=== PATIENT | female | born 1935 | race Caucasian/White ===

== ENCOUNTER 2022-12-31 08:32 | Observation (INO) ==
--- NOTE | 2022-12-31 08:52 | ED.PDOC ---
General ED Provider: Dr. MARTÍNEZ VEGA MD Chief Complaint: Non-specific Complaint Stated Complaint: PATIENT CALLED POLICE TO HOME ATTEMPTING TO FIND RELATIVES. POLICE INFORMED EMS THAT PATIENT HAS VERY LITTE FOOD IN HER HOME. UPON ARRIVAL OF EMS, WHO NOTICED FECAL MATERIAL ON THE FLOOR IN ALL THE ROOMS, MARKED FECES IN HER GARAGE, NO FUNCTIONING TOILET. PATIENT DENIES COMPLAINS HEADACHE, CHEST PAIN, DYSPNEA, NAUSEA EMESIS AND DIARRHEA, FALL, INJURY OR TRAUMA. Time Seen by Provider: 12/31/22 08:40 Mode of Arrival: Ambulance Information Source: Patient Exam Limitations: Clinical condition and Dementia Nursing and Triage Documentation Reviewed and Agree: Yes Does patient meet sepsis criteria?: No System Inflammatory Response Syndrome: Not Applicable Sepsis Protocol: For patient's 13 years and over: Temp is 96.8 and below OR 101 and greater Pulse >90 BPM Resp >20/minute Acutely Altered Mental Status Are patient's symptoms suggestive of a new infection, such as: -Pneumonia -Skin, Soft Tissue -Endocarditis -UTI -Bone, Joint Infection -Implantable Device -Acute Abdominal Infection -Wound Infection -Meningitis -Blood Stream Catheter Infection -Unknown Review of Systems Review Of Systems Constitutional: Reports No symptoms; Denies Chills, Diaphoresis, Fever or Malaise Eyes: Reports No symptoms; Denies Blindness, Blurred vision or Vision change Ears, Nose, Mouth, Throat: Reports No symptoms; Denies Ear pain, Ear discharge, Nose pain or Nose discharge Respiratory: Reports No symptoms; Denies Cough or Short of air Cardiac: Reports No symptoms GI: Reports No symptoms; Denies Abdomen distended or Abdominal pain : Reports No symptoms; Denies Burning Musculoskeletal: Reports No symptoms; Denies Back pain, Gout or Joint pain Skin: Reports No symptoms Neurological: Reports No symptoms Endocrine: Reports No symptoms Hematologic/Lymphatic: Reports No symptoms All Other Systems: Reviewed and Negative Physical Exam Physical Exam Appearance: Reports Cachectic and Other (MALNOURISH) Ill-appearing: Mild Pain Distress: Not Applicable Eyes: Reports JANETH, EOMI and Conjunctiva clear ENT: Reports Ears normal Neck: Supple Respiratory: Reports Airway patent, Breath sounds clear and Breath sounds equal Cardiovascular: Reports RRR and Pulses normal GI/: Reports Soft Musculoskeletal: Reports Normal strength, ROM intact, No edema, No calf tenderness and Other (DRIED FECAL MATERIAL ON LOWER EXTREMITES SHINS, FEET AND TOES) Skin: Reports Warm, Dry and Normal color Neurological: Reports Sensation intact, Motor intact and Reflexes intact Psychiatric: Reports Affect appropriate and Mood appropriate Interpretation Radiology Interpretation Xray Comments: patient refused chest xray AND IV FLUIDS Technology Recruiter Time of Technology Recruiter Interpretation: 14:27 Rate: Normal Rhythm: Sinus Ectopy: None EKG Interpretation Time of EKG #1: 09:26 Rate: Normal Rhythm: Sinus Ectopy: None [place]: Left ST Segment: Other (nonspecific st wave changes inferior laterally) Interpretation: normal sinus rhythm rate 87, nonspecific st wave changes inferior lat, Re-Evaluation Re-Evaluation Time of Re-Evaluation: 13:30 Status: Unchanged Vital Signs Stable: Yes Appearance: NAD Lungs: Clear Skin: Warm and Dry Neuro: Other (alert to person, time, confused to date) Physician Notification Case Discussed Physician Notified: DISCUSSED WITH DR HAMILTON Time of Notification: 16:40 Comments: FOR ADMISSION TO OBSERVATION Critical Care Note Critical Care Note Total Critical Care Time (mins): 0 Course Course 12/31/22 09:29 12/31/22 09:29 Orders, Labs, Meds: Lab Review 12/31/22 12/31/22 12/31/22 09:25 09:29 12:52 WBC 4.68 RBC 3.56 L Hgb 11.1 L Hct 32.5 L MCV 91.3 MCH 31.2 H MCHC 34.2 RDW Coeff of [place] 12.7 Plt Count 169 Immature Gran % (Auto) 0.2 Neut % (Auto) 62.4 Lymph % (Auto) 26.1 Kings % (Auto) 10.5 H Eos % (Auto) 0.4 Baso % (Auto) 0.4 Neut # (Auto) 2.9 Lymph # (Auto) 1.2 [place] # (Auto) 0.5 Eos # (Auto) 0.0 Baso # (Auto) 0.0 Immature Gran # (Auto) 0.0 Sodium 138.8 Potassium 3.19 L Chloride 102.4 Carbon Dioxide 30.5 H Anion Gap 9.09 BUN 27.3 H Creatinine 1.37 H Estimated GFR (MDRD) 36.00 BUN/Creatinine Ratio 19.92 Glucose 165.5 H Calcium 9.30 Total Bilirubin 0.67 AST 34.5 ALT 16.7 Alkaline Phosphatase 70.6 Total Protein 7.93 Albumin 4.43 Globulin 3.50 Albumin/Globulin Ratio 1.26 Urine Color Yellow Urine Clarity Clear Urine pH 5.0 Ur Specific [place] >=1.030 Urine Protein 1+ H Urine Glucose (UA) Negative Urine Ketones Trace H Urine Blood Negative Urine Nitrite Negative Urine Bilirubin Negative Urine Urobilinogen 0.2 Ur Leukocyte Esterase Trace H Urine Microscopic RBC 2-5 Urine Microscopic WBC 10-20 Ur Squamous Epith Cells 2-5 Ur Transition Epith Cell 0-2 Amorphous Sediment Trace Urine Bacteria 2+ Hyaline Casts 5-10 Urine Mucus 1+ SARS CoV-2 RNA Rapid ELSIE Negative Orders Category Date Time Status EKG-(ED ONLY) Stat CARDIO 12/31/22 09:03 Completed CBC W/ AUTO DIFF Stat LAB 12/31/22 09:29 Completed COMPREHENSIVE METABOLIC PANEL Stat LAB 12/31/22 09:29 Completed SARS COV-2 RNA RAPID ELSIE Stat LAB 12/31/22 09:25 Completed URINALYSIS C & S IF INDICATED Stat LAB 12/31/22 12:52 Completed URINE CULTURE Stat LAB 12/31/22 12:52 Received Potassium Chloride [K-Dur] MEDS 12/31/22 13:50 Discontinued 40 meq PO ONCE ONE Potassium Chloride [Potassium Chl 10% Oral Rossi] MEDS 12/31/22 13:37 Discontinued 40 meq PO ONCE STA Sodium Chloride 0.9% [Sodium Chloride] 1,000 ml MEDS 12/31/22 09:03 Disconti nued IV 30 mls/hr Medications Discontinued Medications Generic Name Dose Route Start Last Admin Trade Name Freq PRN Reason Stop Dose Admin Sodium Chloride 1,000 mls @ 30 mls/hr 12/31/22 09:03 12/31/22 10:37 Sodium Chloride IV 01/01/23 18:22 Not Given .[id number] STA Potassium Chloride 40 meq 12/31/22 13:37 12/31/22 13:50 Potassium Chloride 40 Meq/30 Ml Cup PO 12/31/22 13:38 Not Given ONCE STA Potassium Chloride 40 meq 12/31/22 13:50 12/31/22 13:53 Potassium Chloride 20 Meq Tab PO 12/31/22 13:51 40 meq ONCE ONE Administration Vital Signs: Temp Pulse Resp BP Pulse Ox 12/31/22 14:31 75 16 114/59 L 98 12/31/22 08:34 98.9 F 93 20 144/80 H 100 Discharge Plan Discharge Discharge Problem: Unable to care for self, Adult failure to thrive, Acute hypokalemia Did you review [place] CARDIOVASCULAR PHYSICIAN ASSISTANT for ALL controlled substances?: Not Applicable Discussed opioids are addictive and Narcan is available by prescription or from pharmacy.: No ED Provider: MARTÍNEZ VEGA Physician Progress Note: MDM []PATIENT CALLED POLICE TO FIND FAMILY MEMBER, FOUND HOME IN [place], EMS FOUND FECES THROUGHOUT THE HOME, NO FUNCTIONING TOILET, PATIENT WITH FECES OVER LOWER EXTREMITIES. ALL LABS REVIEWE BY ME WELL EKG, PATIENT REFUSES CHEST X RAY, AND IV FLUIDS. HISTORY OBTAINED FROM PATIENT AND PARAMEDICS PATIENT ALERT ORIENTED TO PLACE, NAME BUT NOT DATES ALL LABS REVIEWED BY ME, ADMINISTERED POTASSIUM 40MEQ LIQUID, BUT REFUSED, ACCEPTED POTASSIUM TABLET 40MEP ORALLY THERE HAS BEEN NO CHANGE THROUGHOUT EMERGENCY ROOM VISIT PATIENT LIVING CONDITION IN SUCH DISARRAY IN THAT IT IS UNSAFE FOR PATIENT TO RETURN HOME DISCUSSED WITH PATIENT'S FAMILY TANA THORPE AT 1345 CONCERNING PATIENT'S LIVING CONDITION WITH RECOMMENDATION OF HOSPITALIZATION FOR POSSIBLE PLACEMENT. ADULT PROTECTIVE SERVICES WERE CONSULT FOR PATIENT LIVING CONDITION. 1500-DISCUSSED WITH DR HAMILTON CONCERNING USP PLACEMENT [address] HAMILTON FOR ADMIT TO OBSERVATION DUE TO BEING UNABLE TO PLACE IN [facility] DIAGNOSIS: 1)FAILURE TO THRIVE 2)MALNUTRITION 3)HYPOKALEMIA
[2022-12-31] MEDS ORDERED: SODIUM CHLORIDE 1,000 ML IV STA (09:03)
[2022-12-31 09:34] LABS: BASOPHILS % (AUTO) 0.4 % (0.0-3.0); EOSINOPHILS % (AUTO) 0.4 % (0.0-7.0); HEMATOCRIT 32.5 % (37.0-47.0); HEMOGLOBIN 11.1 g/dl (12.0-16.0); IMMATURE GRANULOCYTE % (AUTO) 0.2 % (0.0-5.0); LYMPHOCYTES # (AUTO) 1.2 K/uL (0.60-3.4); LYMPHOCYTES % (AUTO) 26.1 (10.0-50.0); MEAN CORPUSCULAR HEMOGLOBIN 31.2 pg (27.0-31.0); MEAN CORPUSCULAR HGB CONC 34.2 (31.8-35.4); MEAN CORPUSCULAR VOLUME 91.3 fl (81.0-99.0); MONOCYTES # (AUTO) 0.5 K/uL (0.4-2.0); MONOCYTES % (AUTO) 10.5 (0-10); NEUTROPHILS # (AUTO) 2.9 K/ul (2.0-6.9); NEUTROPHILS % (AUTO) 62.4 % (42.2-75.2); PLATELET COUNT 169 10^3/uL (140-440); RDW COEFFICIENT OF VARIATION 12.7 % (11.6-14.8); RED BLOOD COUNT 3.56 10^6/ul (4.20-5.40); WHITE BLOOD COUNT 4.68 K/ul (4.6-10.2)
[2022-12-31 09:45] LABS: ALANINE AMINOTRANSFERASE 16.7 U/L (0-35); ALBUMIN 4.43 g/dL (3.5-5.0); ALKALINE PHOSPHATASE 70.6 U/L (53-141); ASPARTATE AMINO TRANSFERASE 34.5 U/L (14-36); BILIRUBIN,TOTAL 0.67 mg/dL (0.2-1.3); BLOOD UREA NITROGEN 27.3 mg/dL (7-17); CALCIUM 9.3 mg/dL (8.4-10.2); CARBON DIOXIDE 30.5 mmol/L (22-30.0); CHLORIDE 102.4 mmol/L (98-107); CREATININE 1.37 mg/dL (0.60-1.30); GLUCOSE 165.5 mg/dL (74-106); POTASSIUM 3.19 mmol/L (3.5-5.1); SODIUM 138.8 mmol/L (134.5-145); TOTAL PROTEIN 7.93 g/dL (6.3-8.2)
[2022-12-31 10:19] LABS: SARS COV-2 RNA RAPID NAAT NEGATIVE (NEGATIVE)
[2022-12-31 12:58] LABS: BILIRUBIN,URINE Negative (NEGATIVE); CLARITY,URINE Clear (CLEAR); COLOR,URINE Yellow (YELLOW); GLUCOSE, URINE (UA) Negative (NEGATIVE); KETONES,URINE Trace (NEGATIVE); LEUKOCYTE ESTERASE ,URINE Trace (NEGATIVE); NITRITE,URINE Negative (NEGATIVE); PROTEIN,URINE 1+ (NEGATIVE); URINE, BLOOD Negative (NEGATIVE); UROBILINOGEN,URINE 0.2 (0.2)
[2022-12-31 13:04] LABS: AMORPHOUS SEDIMENT,UR TRACE (NOT PRESENT); BACTERIA,URINE 2+ (NOT PRESENT); MUCUS,URINE 1+ (NOT PRESENT); TRANSITIONAL EPI CELLS,URINE 0-2 (NOT PRESENT)
[2022-12-31] MEDS: POTASSIUM CHL 10% ORAL SOL PO STA ×2 (13:46→13:50)
[2022-12-31] MEDS ORDERED: K-DUR PO ONE (13:50)
[2022-12-31 17:18] VITALS: BMI 16.6
[2023-01-01 05:22] LABS: BASOPHILS % (AUTO) 0.2 % (0.0-3.0); EOSINOPHILS # (AUTO) 0.1 K/ul (0.0-0.7); EOSINOPHILS % (AUTO) 1.9 % (0.0-7.0); HEMATOCRIT 29.4 % (37.0-47.0); HEMOGLOBIN 10.2 g/dl (12.0-16.0); IMMATURE GRANULOCYTE % (AUTO) 0.2 % (0.0-5.0); LYMPHOCYTES % (AUTO) 41.4 (10.0-50.0); MEAN CORPUSCULAR HEMOGLOBIN 31.7 pg (27.0-31.0); MEAN CORPUSCULAR HGB CONC 34.7 (31.8-35.4); MEAN CORPUSCULAR VOLUME 91.3 fl (81.0-99.0); MONOCYTES # (AUTO) 0.4 K/uL (0.4-2.0); MONOCYTES % (AUTO) 8.9 (0-10); NEUTROPHILS # (AUTO) 2.2 K/ul (2.0-6.9); NEUTROPHILS % (AUTO) 47.4 % (42.2-75.2); PLATELET COUNT 146 10^3/uL (140-440); RDW COEFFICIENT OF VARIATION 12.4 % (11.6-14.8); RED BLOOD COUNT 3.22 10^6/ul (4.20-5.40); WHITE BLOOD COUNT 4.71 K/ul (4.6-10.2)
[2023-01-01 05:36] LABS: ALANINE AMINOTRANSFERASE 12.4 U/L (0-35); ALBUMIN 3.3 g/dL (3.5-5.0); ASPARTATE AMINO TRANSFERASE 27.3 U/L (14-36); BILIRUBIN,TOTAL 0.49 mg/dL (0.2-1.3); BLOOD UREA NITROGEN 23.5 mg/dL (7-17); CALCIUM 8.52 mg/dL (8.4-10.2); CARBON DIOXIDE 30.1 mmol/L (22-30.0); CHLORIDE 106.9 mmol/L (98-107); CREATININE 1.05 mg/dL (0.60-1.30); GLUCOSE 107.1 mg/dL (74-106); POTASSIUM 4.11 mmol/L (3.5-5.1); SODIUM 137.9 mmol/L (134.5-145); TOTAL PROTEIN 6.21 g/dL (6.3-8.2)
[2023-01-01 18:07] LABS: OCCULT BLOOD SAMPLE 1 NEGATIVE (NEGATIVE)
[2023-01-02 00:06] LABS: OCCULT BLOOD SAMPLE 2 NO SPECIMEN RECEIVED (NEGATIVE); OCCULT BLOOD SAMPLE 3 NO SPECIMEN RECEIVED (NEGATIVE)
[2023-01-02 05:25] LABS: BASOPHILS % (AUTO) 0.2 % (0.0-3.0); EOSINOPHILS # (AUTO) 0.1 K/ul (0.0-0.7); HEMATOCRIT 31.9 % (37.0-47.0); HEMOGLOBIN 10.9 g/dl (12.0-16.0); IMMATURE GRANULOCYTE % (AUTO) 0.4 % (0.0-5.0); LYMPHOCYTES # (AUTO) 1.8 K/uL (0.60-3.4); LYMPHOCYTES % (AUTO) 35.7 (10.0-50.0); MEAN CORPUSCULAR HEMOGLOBIN 31.4 pg (27.0-31.0); MEAN CORPUSCULAR HGB CONC 34.2 (31.8-35.4); MEAN CORPUSCULAR VOLUME 91.9 fl (81.0-99.0); MONOCYTES # (AUTO) 0.4 K/uL (0.4-2.0); MONOCYTES % (AUTO) 7.9 (0-10); NEUTROPHILS # (AUTO) 2.7 K/ul (2.0-6.9); NEUTROPHILS % (AUTO) 53.8 % (42.2-75.2); PLATELET COUNT 152 10^3/uL (140-440); RDW COEFFICIENT OF VARIATION 12.5 % (11.6-14.8); RED BLOOD COUNT 3.47 10^6/ul (4.20-5.40); WHITE BLOOD COUNT 4.96 K/ul (4.6-10.2)
[2023-01-02 05:35] LABS: ALANINE AMINOTRANSFERASE 14.5 U/L (0-35); ALBUMIN 3.65 g/dL (3.5-5.0); ALKALINE PHOSPHATASE 54.4 U/L (53-141); ASPARTATE AMINO TRANSFERASE 29.6 U/L (14-36); BILIRUBIN,TOTAL 0.28 mg/dL (0.2-1.3); CALCIUM 8.46 mg/dL (8.4-10.2); CARBON DIOXIDE 30.8 mmol/L (22-30.0); CHLORIDE 105.2 mmol/L (98-107); CREATININE 0.93 mg/dL (0.60-1.30); GLUCOSE 114.2 mg/dL (74-106); POTASSIUM 3.59 mmol/L (3.5-5.1); SODIUM 139.8 mmol/L (134.5-145); TOTAL PROTEIN 6.8 g/dL (6.3-8.2)
[2023-01-02 05:42] LABS: IRON 37.7 ug/dL (37-170)
[2023-01-02 05:59] LABS: FREE T4 (FREE THYROXINE) 1.14 ng/dL (0.78-2.19)
[2023-01-02 06:04] LABS: THYROID STIMULATING HORMONE 3.99 uIU/L (0.465-4.68)
[2023-01-02 06:40] LABS: FOLATE 12.6 ng/mL
[2023-01-02 10:26] VITALS: BP 125/62; TEMP 97
== END 2023-01-02 15:00 ==
LOC: MEDSURG A 08:32 → ED 08:32 → MEDSURG A 17:15
PROVIDERS: ADMIT Family Medicine; ATTEND Family Medicine
DX: Z74.1 Need for assistance with personal care; E86.0 Dehydration; R82.71 Bacteriuria; Z53.20 Procedure and treatment not carried out because of patient's decision for unspecified reasons; E63.9 Nutritional deficiency, unspecified; N28.9 Disorder of kidney and ureter, unspecified; D50.9 Iron deficiency anemia, unspecified; R62.7 Adult failure to thrive; Z59.48 Other specified lack of adequate food; Z20.822 Contact with and (suspected) exposure to COVID-19; Z91.81 History of falling; Z91.199 Patient's noncompliance with other medical treatment and regimen due to unspecified reason; R26.9 Unspecified abnormalities of gait and mobility; R63.4 Abnormal weight loss; F03.90 Unspecified dementia, unspecified severity, without behavioral disturbance, psychotic disturbance, mood disturbance, and anxiety; E87.6 Hypokalemia